=== PATIENT | female | born 2005 | race Caucasian/White ===

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

== ENCOUNTER 2024-02-24 17:06 | Emergency (ER) | payer BC, SELFPAY ==
[2024-02-24 17:18] VITALS: BP 120/68; PULSE 70; RESP 16; TEMP 36.3; O2SAT 100
--- NOTE | 2024-02-24 17:27 | ED_ITS ---
HPI - Ear Problem General Chief complaint: Ear Stated complaint: left ear pain Time Seen by Provider: 02/24/24 17:27 Source: patient, RN notes reviewed and old records reviewed Mode of arrival: ambulatory Limitations: no limitations History of Present Illness HPI Narrative: Patient who with history of frequent ear infections presents with complaints of left ear pain and drainage from left ear. She reports symptoms began 2 or 3 days ago. She does take Claritin every day to try to prevent ear infections. She denies any fever, chills, sweats. She denies any injury or trauma. She denies any change in hearing. She voices no other concerns or complaints at this time. Related Data Home Medications Medication Instructions Recorded Confirmed buspirone 15 mg tablet 15 mg PO DAILY 07/23/22 02/24/24 escitalopram oxalate 10 mg tablet 10 mg PO DAILY 07/23/22 02/24/24 naproxen 500 mg tablet 500 mg PO BID 07/23/22 02/24/24 prazosin 2 mg capsule 2 mg PO DIRECTED 07/23/22 02/24/24 serdexmethylphenidate 26.1 1 cap PO DAILY 09/18/22 02/24/24 mg-dexmethylphenidate 5.2 mg capsule (Azstarys) Allergies Allergy/AdvReac Type Severity Reaction Status Date / Time No Known Allergies Allergy Verified 02/24/24 17:09 Review of Systems Review of Systems: All systems reviewed & are unremarkable except as noted in HPI and below Constitutional: Constitutional: Reports no additional constitutional complaints ENT: Reports system reviewed and no additional complaints, except as documented, Reports as per HPI, Reports ear discharge and Reports otalgia Cardiovascular: Cardiovascular: Reports no additional cardiovascular complaints Respiratory: Respiratory: Reports no additional respiratory complaints Gastrointestinal: Gastrointestinal: Reports no additional gastrointestinal co mplaints [facility] Past Medical History Medical History Dysautonomia Patient denies significant medical history Family History Family History Other Diabetes mellitus Social History Social History Second hand tobacco smoke exposure: No Comments At the time of my signature, I reviewed and agree with the nursing past medical, surgical, social, and family history. There is no relevant family history pertinent to the patient complaint. Exam Const: General: cooperative, no acute distress, alert and awake Orientation/consciousness: oriented to person, oriented to place and oriented to time HENMT: Head: normal to inspection Ears: Abnormal EAC present erythema and TM abnormal with loss of landmarks on the left, perforated with clear discharge on the left, retracted on the left and scarred bilateral Resp: Effort & Inspection: normal respiratory effort and able to speak in complete sentences Auscultation: clear to auscultation bilaterally, no crackles, no rales, no rhonchi and no wheezes Cardio: Palpation: normal PMI Rate: regular rate Rhythm: regular rhythm Heart sounds: S1 normal heart sound present and S2 normal heart sound present Neuro: General: oriented to person, oriented to place and oriented to time Cranial nerves: Yes CN's II-XII intact bilaterally Psych: Appearance: grossly normal Thought process: Normal thought process present Insight: Good insight present (Psych) Judgement: Good judgement present (Psych) Course Course Level of Care: Express Care Visit Vital Signs Vital signs: Vital Signs Temperature 97.4 F L 02/24/24 17:18 Pulse Rate 70 02/24/24 17:18 Respiratory Rate 16 02/24/24 17:18 Blood Pressure 120/68 02/24/24 17:18 Pulse Oximetry 100 02/24/24 17:18 Oxygen Delivery Room Air 02/24/24 17:18 Temperature 97.4 F L 02/24/24 17:18 Pulse Rate 70 02/24/24 17:18 Respiratory Rate 16 02/24/24 17:18 Blood Pressure 120/68 02/24/24 17:18 Pulse Oximetry 100 02/24/24 17:18 Oxygen Delivery Room Air 02/24/24 17:18 Reviewed Medical Decision Making MDM Narrative Medical decision making narrative: Exam consistent with otitis media and otitis externa. Start oral antibiotics and otic drops. Patient reports that she has had to do this regimen in the past. States that she has difficulty clearing ear infections. She is advised to follow with primary care provider. She is nontoxic appearing. Stable for discharge home. Discharge instructions reviewed with patient, as well as provided in writing per nursing staff. The instructions also include specific and strict return/GO TO THE ER as well as f/u information. All questions have been answered, and the patient deny any further questions with discharge and discharge plan. Some parts of this dictation were generated by voice recognition software and may contain typographical and/or grammatical inaccuracies. Vital Signs Vital Signs: Vital Signs Temperature 97.4 F L 02/24/24 17:18 Pulse Rate 70 02/24/24 17:18 Respiratory Rate 16 02/24/24 17:18 Blood Pressure 120/68 02/24/24 17:18 Pulse Oximetry 100 02/24/24 17:18 Oxygen Delivery Room Air 02/24/24 17:18 Temperature 97.4 F L 02/24/24 17:18 Pulse Rate 70 02/24/24 17:18 Respiratory Rate 16 02/24/24 17:18 Blood Pressure 120/68 02/24/24 17:18 Pulse Oximetry 100 02/24/24 17:18 Oxygen Delivery Room Air 02/24/24 17:18 reviewed Lab Data Lab results reviewed: Yes I reviewed the patient's lab results. Lab results narrative: reviewed Discharge Plan Discharge Clinical Impression: Otitis externa Qualifiers: Otitis externa type: unspecified type Chronicity: acute Laterality: left Qualified Code(s): H60.502 - Unspecified acute noninfective otitis externa, left ear Otitis media Qualifiers: Otitis media type: suppurative Chronicity: acute Laterality: left Recurrence: not specified as recurrent Spontaneous tympanic membrane rupture: with spontaneous rupture Qualified Code(s): H66.012 - Acute suppurative otitis media with spontaneous rupture of ear drum, left ear Patient Disposition: Home, Self-Care Condition: Stable Instructions: Antibiotic Form, Ear Infection (ED) Additional Instructions: Take medications as prescribed. Follow with primary care provider. Emergency department for new or worse symptoms Patient Language: Maltese Prescriptions: New amoxicillin 875 mg tablet 875 mg PO Q12H Qty: 20 0RF ciprofloxacin-dexamethasone 0.3-0.1 % drops,suspension 4 drp EACH EAR Q12H 7 Days Qty: 7.5 0RF No Action Azstarys 26.1 mg- 5.2 mg capsule 1 cap PO DAILY prazosin 2 mg capsule 2 mg PO DIRECTED naproxen 500 mg tablet 500 mg PO BID buspirone 15 mg tablet 15 mg PO DAILY escitalopram oxalate 10 mg tablet 10 mg PO DAILY Follow-up/Referrals: PHYSICIAN NOT ON STAFF,NONSTAFF [Primary Care Provider] - Time of Disposition: 17:37
== END 2024-02-24 17:45 | disposition home or self-care (01) ==
PROVIDERS: Emergency Provider Nurse Practitioner Family
DX: H60.502 Unspecified acute noninfective otitis externa, left ear (principal); H66.012 Acute suppurative otitis media with spontaneous rupture of ear drum, left ear
CPT/HCPCS: 99213; G0463